=== PATIENT | male | born 1955 | race Caucasian/White ===

== ENCOUNTER → 2017-06-01 | Outpatient (CLI) | payer OTHER ==
--- NOTE | 2017-06-01 16:17 | MR ---
EXAMINATION TYPE: MR shoulder RT wo con DATE OF EXAM: 06/01/2017 2:59 PM COMPARISON: NONE HISTORY: Right shoulder pain x8 years, getting worse with Limited ROM TECHNIQUE: Multiplanar multispin echo imaging of the right shoulder was performed. FINDINGS: Rotator cuff : Thickening and heterogeneity of the supraspinatus tendon with partial undersurface tea r. No evidence for full-thickness tear. The remaining constituents of the rotator cuff are intact. Bursa: No bursal effusion or thickening is seen. Musculature: There is no muscular tear, contusion, or atrophy. Acromioclavicular joint : There are mild degenerative changes of the acromioclavicular joint. There is no anterior or lateral acromial downsloping. Osseous structures : There are no fractures or regions of abnormal bone marrow signal intensity. Long biceps tendon : The biceps tendon is normally situated within the bicipital groove. No complete or partial biceps tendon tear is present. Glenohumeral Joint fluid : There is no glenohumeral joint effusion. Cartilage and Bone : No focal hyaline cartilage defects are noted. No Hill-Sachs, reverse Hill-Sachs, or bony Bankart lesions are seen. Labrum : There are no SLAP or soft tissue Bankart lesions. No paralabral cysts are seen. OTHER FINDINGS : none IMPRESSION: 1. No significant abnormality
== END | disposition home or self-care (01) ==
LOC: RADMRIMAIN 14:17
PROVIDERS: ATTEND Orthopaedic Surgery
DX: M25.511 Pain in right shoulder (principal)

== ENCOUNTER → 2022-05-02 | Outpatient (CLI) | payer OTHER ==
--- NOTE | 2022-05-04 10:26 | MR ---
EXAMINATION TYPE: MR Prostate wo/w con DATE OF EXAM: 05/02/2022 9:57 AM COMPARISON: None. CLINICAL INDICATION:Male, 67 years old with history of C61 PROSTATE CANCER; TECHNIQUE: Multi-planar, multi-sequence imaging of the pelvis is performed prior to and following the uncomplicated administration of bolus intravenous gadolinium. CONTRAST: 8 Gadavist Interpretive Criteria: PI-RADS v2.1 SERUM PSA: No data available. SURGICAL PATHOLOGY: No data available. FINDINGS: Prostatic dimensions: 6.4 x 5.8 x 2.8 cm. Ellipsoid Volume: 73.86 cc CENTRAL GLAND (Central and Transition Zones/CZ+TZ): Low T2 signal with smudgy ill-defined borders involving the right central gland mid gland and apex me asuring 2.7 x 2.4 cm. There is evidence of low ADC and high WI signal in this region. PIRADS 5. PERIPHERAL ZONE (PZ): Right posterior peripheral zone apex and mid gland 2.6 x 1.1 and extends towards the apex and crosses midline. PIRADS 5 SEMINAL VESICLES (SV): Low T2/T1 signal in the seminal vesicles which demonstrates postcontrast enhancement and high DWI and low ADC signal. LYMPH NODES: No enlarged pelvic lymph node. REMAINING PELVIS: Trabeculated bladder wall likely secondary to chronic bladder outlet obstruction. No abnormal free or organized intrapelvic fluid collection. No pathologic bowel dilation or mural thickening. OSSEOUS STRUCTURES: No suspicious osseous abnormality. IMPRESSION: 1. PI-RADS 5 lesion right peripheral gland apex/mid gland which extends towards the apex and crosses midline near the apex. There is enhancing tissue within the seminal vesicles near midline suggestive of involvement of the seminal vesicles. 2. PI-RADS 5 lesion right central mid gland/apex measuring up to 2.7 cm. 3. Substantial BPH, estimated gland volume 73.86 mL. 4. No suspicious osseous lesion. No lymphadenopathy identified and no significant.
== END | disposition home or self-care (01) ==
LOC: RADMRIMAIN 08:53
PROVIDERS: ATTEND Urology
DX: C61 Malignant neoplasm of prostate (principal); N40.0 Benign prostatic hyperplasia without lower urinary tract symptoms
CPT/HCPCS: 72197; A9585

== ENCOUNTER → 2022-05-06 | Outpatient (CLI) | payer OTHER ==
[2022-05-06 15:25] LABS: Appearance,Urine Clear (Clear); Bilirubin,Urine Negative (Negative); Blood,Urine Negative (Negative); Color,Urine Yellow (Yellow); Ketones,Urine Negative (Negative); Nitrite,Urine Negative (Negative); PH, Urine 7.5 (5.0-8.0); Specific Gravity,Urine 1.021 (1.001-1.030); Urobilinogen,Urine 0.2 (0.2,1.0)
[2022-05-06 15:42] LABS: African American GFR (CKD) 102.1 (60.0-200.0); Anion Gap 10.1 mmol/L (10.00-18.00); BUN/Creat Ratio 16.57 Ratio (12.00-20.00); Carbon Dioxide 27.5 mmol/L (20.0-27.5); Non-African American GFR(CKD) 88.1 (60.0-200.0); Potassium 4.6 mmol/L (3.5-5.5)
[2022-05-06 18:12] LABS: Basophils # (A) 0.02 X 10*3/uL (0.00-0.10); Basophils % (A) 0.4 %; Eosinophils # (A) 0.12 X 10*3/uL (0.04-0.35); Eosinophils % (A) 2.2 %; HCT 47.7 % (39.6-50.0); HGB 15.1 g/dL (13.0-17.0); Immature Grans, Automated 0.4 %; Lymphocytes # (A) 1.54 X 10*3/uL (0.90-5.00); Lymphocytes % (A) 27.8 %; MCH 29.2 pg (27.0-32.0); MCHC 31.7 g/dL (32.0-37.0); MCV 92.1 fL (80.0-97.0); Monocytes # (A) 0.53 X 10*3/uL (0.20-1.00); Monocytes % (A) 9.6 %; NRBC Per 100 WBC 0 /100 WBCS (0.0-0.0); Neutrophils % (A) 59.6 %; Platelet Count 131 X 10*3/uL (140-440); RBC 5.18 X 10*6/uL (4.40-5.60); RDW 13.2 % (11.5-14.5); WBC 5.53 X 10*3/uL (4.50-10.00)
== END | disposition home or self-care (01) ==
LOC: LABPAT 09:34
PROVIDERS: ATTEND Urology
DX: Z01.812 Encounter for preprocedural laboratory examination (principal); C61 Malignant neoplasm of prostate; R31.29 Other microscopic hematuria; R09.89 Other specified symptoms and signs involving the circulatory and respiratory systems
CPT/HCPCS: 36415; 80048; 81003; 85025; 87086

== ENCOUNTER → 2022-05-06 | Outpatient (CLI) | payer OTHER ==
--- NOTE | 2022-05-06 09:52 | XR ---
EXAMINATION TYPE: XR chest 2V DATE OF EXAM: 05/06/2022 COMPARISON: NONE TECHNIQUE: PA and lateral views submitted. HISTORY: Presurgical FINDINGS: The lungs are clear and there is no pneumothorax, pleural effusion, or focal pneumonia. Heart size normal. No overt failure. Arthropathy of the shoulders. Hyperinflation suggests COPD. IMPRESSION: 1. No acute process.
== END | disposition home or self-care (01) ==
LOC: RADXRMAIN 09:07
PROVIDERS: ATTEND Urology
DX: C61 Malignant neoplasm of prostate (principal); R31.29 Other microscopic hematuria
CPT/HCPCS: 71046

== ENCOUNTER 2022-05-14 08:47 | Day surgery (SDC) | payer OTHER ==
--- NOTE | 2022-05-11 09:14 | P.HPIHPCON ---
History of Present Illness H&P Date: 05/11/22 Chief Complaint: Prostate cancer This is a 67-year-old male history of Bettina 7 (3+4) prostate cancer. Option of robotic prostatectomy versus radiation therapy was discussed with him in detail. Risk and benefit of each approach was discussed in details. He agreed to proceed with a robotic radical prostatectomy with pelvic lymph node dissection. Discussed risk which includes but not limited to bleeding, infection, urinary incontinence, erectile dysfunction, strictures. Discussed risk of injury to nearby organs which includes but not limited to bladder, ureter, rectum and bowel. Discussed also with him risk of anesthesia. Discussed also potential of persisting cancer and cancer recurrence even with surgery. He understood all the risk and agreed to proceed Consent for Procedure: I have explained the operation/procedure to the patient, including the risks, benefits, side effects, alternative therapies (including not receiving the proposed treatment or service), the likelihood of the patient achieving his/her goals, and potential recuperation problems for the procedure/sedation/analgesia, as well as any blood products, if indicated. I also explained to the patient the risks, benefits and side effects of the alternatives, as well as the risks related to not receiving the proposed procedure, care, treatment, or services. Surgical - Exam - General no distress, no pain - Eyes normal ocular movement, no pale - ENT normal nares, normal mucosa - Respiratory normal expansion, normal respiratory effort - Abdomen Abdomen: non tender - Psychiatric oriented to time, oriented to person, oriented to place Assessment and Plan Assessment: OR for robotic radical prostatectomy with pelvic lymph node dissection
[2022-05-13 09:11] VITALS: BMI 25.2
[~2022-05-14 08:47] MED LIST: HEPARIN SODIUM,PORCINE/PF 5,000 UNIT/0.5 ML SYRINGE SQ PRN
[2022-05-14] MEDS ORDERED: LACTATED RINGERS 1,000 ML IV ONE ×5 (09:49→14:31)
[2022-05-14] MEDS ORDERED: ONDANSETRON 4 MG/2 ML VIAL ONE (10:03)
[2022-05-14] MEDS ORDERED: ONDANSETRON 4 MG/2 ML VIAL IVP ONE (10:07)
[2022-05-14] MEDS ORDERED: DEXAMETHASONE SOD PHOSPHATE 4 MG/ML 1 ML VIAL IVP ONE (10:08)
[2022-05-14] MEDS ORDERED: MIDAZOLAM 2 MG/2 ML VIAL IVP ONE (10:17)
[2022-05-14] MEDS ORDERED: fentaNYL (PF) 50 MCG/1 ML VIAL IVP ONE (10:18)
--- NOTE | 2022-05-14 10:28 | P.ANPRN ---
Procedure Note - Anesthesia - Nerve Block Performed Bilateral Erector Spinae Single Time Out Performed: Yes Date of Procedure: 05/14/22 Procedure Start Time: 10:16 Procedure Stop Time: : Location of Patient: PreOp () Indication: Acute Post-Operative Pain, Requested by Surgeon Specifically requested for management of pain by DrLeilani: Mark Perdomo Sedation Type: Sedate with meaningful contact maintained Preparation: Sterile Prep Position: Prone Needle Types: Pajunk Needle Gauge: 21 Ultrasound used to visualize needle placement: Yes Ultrasound used to observe medication spread: Yes Injectate: 0.5% Ropivacaine (see comment for volume) (15 ml +,15 ml NSS PF + 4 mg Dexamethason per side) Blood Aspirated: No Pain Paresthesia on Injection Noted: No Resistance on Injection: Normal Image Stored and Saved: Yes Events: Uneventful and Well Tolerated
[2022-05-14] MEDS ORDERED: MIDAZOLAM 2 MG/2 ML VIAL ONE (11:03)
[2022-05-14] MEDS ORDERED: ROCURONIUM 10 MG/ML (5 ML VIAL) IV ONE (11:03)
[2022-05-14] MEDS ORDERED: GLYCOPYRROLATE 0.2 MG/ML 2 ML VIAL ONE (11:03)
[2022-05-14] MEDS ORDERED: HYDROmorphone (PF) 1 MG/ML ONE (11:03)
[2022-05-14] MEDS ORDERED: LIDOCAINE 2% INJ 20 MG/ML (2 ML VIAL) ONE (11:03)
[2022-05-14] MEDS ORDERED: fentaNYL (PF) 50 MCG/ML 2 ML AMP ONE (11:03)
[2022-05-14] MEDS ORDERED: DEXAMETHASONE SOD PHOSPHATE 4 MG/ML 1 ML VIAL ONE (11:03)
[2022-05-14] MEDS ORDERED: SODIUM CHLORIDE 0.9% (PF) 10 ML VIAL ONE (11:03)
[2022-05-14] MEDS ORDERED: NEOSTIGMINE 1 MG/ML 10 ML VIAL ONE (11:03)
[2022-05-14] MEDS ORDERED: ROPIVACAINE 5 MG/ML 30 ML VIAL ONE (11:03)
[2022-05-14] MEDS ORDERED: SUCCINYLCHOLINE CHLORIDE 200 MG/10 ML VIAL IV ONE (11:03)
[2022-05-14] MEDS ORDERED: PROPOFOL 10 MG/ML 20 ML VIAL IV ONE (11:03)
[2022-05-14] MEDS ORDERED: BUPIVACAINE (PF) 0.25% 30 ML VIAL SQ ONE ×2 (11:41→15:52)
[2022-05-14] MEDS ORDERED: SODIUM CHLORIDE 0.9% 50 ML with ceFAZolin 2,000 MG IV ONE ×2 (15:01)
--- NOTE | 2022-05-14 15:59 | P.OP ---
Date of Procedure: 05/14/22 Preoperative Diagnosis: Prostate cancer Postoperative Diagnosis: Same Procedure(s) Performed: Robotic-assisted laparoscopic radical prostatectomy, pelvic lymph node dissection Implants: None Anesthesia: ALEXISA Surgeon: Mark Perdomo Estimated Blood Loss (ml): 250 Pathology: other (Prostate, bilateral seminal vesicle, bilateral pelvic lymph nodes) Condition: stable Disposition: PACU Indications for Procedure: This is a 67-year-old male history of Bettina 7 (3+4) prostate cancer. Option of robotic prostatectomy versus radiation therapy was discussed with him in detail. Risk and benefit of each approach was discussed in details. He agreed to proceed with a robotic radical prostatectomy with pelvic lymph node dissection. Discussed risk which includes but not limited to bleeding, infection, urinary incontinence, erectile dysfunction, strictures. Discussed risk of injury to nearby organs which includes but not limited to bladder, ureter, rectum and bowel. Discussed also with him risk of anesthesia. Discussed also potential of persisting cancer and cancer recurrence even with surgery. He understood all the risk and agreed to proceed Operative Findings: After preoperative antibiotics were started, the patient was taken to the operating room. Anesthesia was induced and the patient was placed in a supine position, with adequate padding of the pressure points, shoulders, back, legs and arms. He was then prepped and draped in the standard fashion. A critical pause was performed using two patient identifiers. A 16F white catheter was placed to gravity drainage. A pneumo-peritoneum was created with placement of a Veress needle to 20 mm Hg without complication, and a 8 Fr trocar was placed above the umbillicus. Under direct vision a 8mm robotic ports was placed lateral to each rectus slightly below the camera port. The left iliac fossa 8mm port was placed. The right central supply assistant right iliac fossa 12mm port and right paramedian 5mm portwere placed. After the patient was placed in the trendelenberg position, the robot was then docked to the 8mm robotic ports and then each robotic arm and tower was checked in relation to the patient's legs and hands to avoid inadvertent compression. The peritoneal cavity was inspected. An inverted U-shaped incision began laterally to the left medial umbilical ligament and extended high across the midline to the right umbilical ligament. The limbs of the "U" extended to the level of the vasa on both sides. We next developed the preperitoneal space and the space of Retzius. Cautery was used to dissected the bladder away from the prostate. After the anterior bladder neck was incised and the bladder entered the the posterior bladder neck was exposed and the ureteral orifces identified. The posterior bladder neck was then incised and dissected away from the prostate. The vas and the seminal vesicles were now exposed. I was able to dissect the left seminal vesicle as there was a clear surgical plane. The right seminal vesicle was completely adherent . I was able to excise the seminal vesicle off the denovillers fascia using cautery, I followed the plane on the left, and carried to the right side. of note the right seminal vesicle was quite indurated which was highly concerning for extension into the seminal vesicle. and dissected to their insertions into the prostate and were not spared. The posterior layer of the Denonvillier's fascia was incised to enter anu the plane between prostate and perirectal fat. Each lateral pedicle was controlled with clips and cautery for hemostasis. No nerve sparing was performed. Apically along the right side and along the midline the rectum was adherent to the prostate. There was high concern of extraprostatic extension along that region. The prostate was reflected off of the rectum sharply, and with the use of minimal cautery/ The puboprostatic ligament was incised where it inserted into the apex of the prostate and a plane between urethra and dorsal venous complex developed to expose the anterior urethral surface. The anterior wall of the urethra was transected with the cut setting a few millimeters distal to the apex of the prostate. The dorsal vein was ligated using 3-0 V lock bilateral obturator and external iliac lymph node packets were carefully dissected after careful visualization of the hypogastric artery and obturator nerve. There was careful attention paid to hemostasis with judicious use of cautery.. There was limited lymphatic tissue along the left side, as there was a great deal of induration and edema secondary to the patient's previous inguinal hernia surgery repair. The urethrovesical anastomosis was performed . the posterior denovillers was reapproximated using 3-0 V lock. A 6 and 9 inch 3-0 V-Lock suture was used to anastomose the urethra and bladder, starting at the 6:00 posterior position. Mucosa was secured in every stitch, to ensure a mucosa to mucosa anastomosis. The stitch was regularly cinched and the anastomosis tightened. Care was taken to not violate the ureteral orifices. The White catheter was advanced, the bladder filled, and the anastomosis was tested, as described above. Anastomsis was watertight at 150 mL The periumbilical fascia was closed with 1-0-PDS suture in figure of 8 fashion.. All ports were closed with a subcuticular 4-0 monocryl and Dermabond. Sponge, instrument, and needle counts were correct at the end of the case x2. All specimens including prostate and lymph nodes were sent to pathology for diagnosis and will be available in a week. The patient tolerated the surgery well and without complication. He awoke without difficulty and was taken to the recovery room in stable condition
[2022-05-14] MEDS ORDERED: HYDROmorphone 0.5 MG/0.5 ML SYRINGE IVP ONE (16:15)
[2022-05-14] MEDS ORDERED: KETOROLAC 15 MG/ML 1 ML VIAL IVP ONE (16:45)
[2022-05-14] MEDS: HEPARIN SODIUM,PORCINE/PF 5,000 UNIT/0.5 ML SYRINGE SQ SCH ×2 (18:07→23:21)
[2022-05-14] MEDS: D5-0.45% NACL WITH KCL 20MEQ/L 1,000 ML IV SCH (18:08)
[2022-05-14] MEDS: HYDROcodone/APAP 5-325MG 1 EACH TAB PO PRN (20:15)
[2022-05-14] MEDS: KETOROLAC 15 MG/ML 1 ML VIAL IVP SCH (23:21)
[2022-05-15] MEDS: D5-0.45% NACL WITH KCL 20MEQ/L 1,000 ML IV SCH ×2 (00:55→08:02)
[2022-05-15] MEDS: KETOROLAC 15 MG/ML 1 ML VIAL IVP SCH ×2 (05:10→11:36)
[2022-05-15] MEDS: HEPARIN SODIUM,PORCINE/PF 5,000 UNIT/0.5 ML SYRINGE SQ SCH (08:01)
[2022-05-15 08:05] VITALS: BP 104/59; PULSE 61; RESP 17; TEMP 97.6
--- NOTE | 2022-05-15 08:23 | P.DS ---
Providers Expected date of discharge: 05/15/22 Attending physician: Mark Perdomo MD Primary care physician: [facility] Course: On the day of admission, the patient underwent an uncomplicated robotic-assisted laparoscopic prostatectomy with bilateral pelvic lymphadenectomy. The perioperative course was unremarkable. Patient remained afebrile with stable vital signs. On the first postoperative day, he was reasonably comfortable and tolerating diet. The abdomen was soft and non-distended. Incisions were clean and dry. The Freeman catheter was draining clear yellow urine. The patient was preparing to ambulate. Procedures: Robotic-assisted laparoscopic prostatectomy (RAL P) with bilateral pelvic lymphadenectomy in 05/14/2022. Patient Condition at Discharge: Good Plan - Discharge Summary Discharge Rx Participant: No New Discharge Prescriptions: New Ciprofloxacin HCl [Cipro] 250 mg PO Q12HR #6 tablet Ketorolac [Toradol] 10 mg PO Q6HR PRN #10 tab PRN Reason: Pain No Action Tamsulosin [Flomax] 0.4 mg PO DAILY Discharge Medication List Tamsulosin [Flomax] 0.4 mg PO DAILY 05/13/22 [History] Ciprofloxacin HCl [Cipro] 250 mg PO Q12HR #6 tablet 05/15/22 [Rx] Ketorolac [Toradol] 10 mg PO Q6HR PRN #10 tab 05/15/22 [Rx] Follow up Appointment(s)/Referral(s): Mark Perdomo MD [STAFF PHYSICIAN] - 10 Days Activity/Diet/Wound Care/Special Instructions: Discharge home with Freeman catheter. Instruct patient to use overnight drainage bag as well as urinary leg bag. Okay to shower. Diet as tolerated. No lifting, driving, or strenuous activity. Reassure patient that abdominal wall ecchymosis and penoscrotal swelling are normal. Instruct patient to begin taking antibiotics one day prior to Freeman catheter removal, and to discontinue taking tamsulosin. Discharge Disposition: HOME SELF-CARE
[2022-05-15] MEDS: HYDROcodone/APAP 5-325MG 1 EACH TAB PO PRN (11:34)
== END 2022-05-15 13:23 | disposition home or self-care (01) ==
LOC: OR 08:47 → 4SSUR 16:00 → OR 05-15 13:23
PROVIDERS: ATTEND Urology
DX: C61 Malignant neoplasm of prostate (principal); Z79.899 Other long term (current) drug therapy; Z85.46 Personal history of malignant neoplasm of prostate
CPT/HCPCS: 94760; 64999; 86900; 86901; 86850; 55866; J2250; J1100; J0690 ×2; J2405; J1885 ×2; J1170; J1644 ×2; J3010; 88305; 88307; 88309

== ENCOUNTER → 2023-03-25 | Outpatient (CLI) | payer OTHER ==
--- NOTE | 2023-03-26 13:26 | PE ---
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 Images are reviewed on the computer in t he coronal, axial, and sagittal planes. Reconstructed rotating images are created on independent wor kstation and reviewed on the computer. A non-contrast CT is performed in conjunction with the PET s can. CT DLP: 411.43 mGycm, Automated exposure control for dose reduction was used. COMPARISON: CT None, PET/CT None, MR 05/02/2022. FINDINGS: Mediastinal SUV mean is 0.9. Hepatic parenchyma SUV mean is 4.69. SKULL BASE AND NECK: No suspicious radiotracer activity. CHEST, MEDIASTINUM, AND HILAR REGION: No suspicious radiotracer activity. ABDOMEN AND PELVIS: * Left common iliac lymph node measuring 6 mm in short axis max SUV 10.0. * Presacral lymph node lymph node measuring 6 mm Max SUV 2.8. * Lymph nodes posterior to the sacrum in the presacral spacer measuring up to 9 mm Max SUV 5.5. * Right seminal vesicle uptake max SUV 7.4. * Right pelvic sidewall lymph node measuring 4 mm Max SUV 2.5. MUSCULOSKELETAL STRUCTURES: No suspicious radiotracer activity. OTHER CT: Bilaterally aphakia.2 atherosclerosis of the arterial vasculature. Right simple appearing r enal cysts. Fat-containing umbilical hernia. Clonic diverticulosis. IMPRESSION: Findings suspicious for metastatic prostate adenocarcinoma with left common iliac, presacral/pelvic l ymph nodes as well as right seminal vesicle uptake.
== END | disposition home or self-care (01) ==
LOC: RADPETMAIN 09:30
PROVIDERS: ATTEND Urology
DX: C61 Malignant neoplasm of prostate (principal)
CPT/HCPCS: 78815; A9596

== ENCOUNTER → 2023-06-21 | Outpatient (CLI) | payer OTHER ==
[2023-06-21 15:11] LABS: Blood Urea Nitrogen 15.6 mg/dL (9.0-27.0)
[2023-06-21 15:42] LABS: Prostate Specific Antigen 0.05 ng/mL (0.000-4.500)
== END | disposition home or self-care (01) ==
LOC: LABWHC1 09:28
PROVIDERS: ATTEND Radiology Radiation Oncology
DX: C61 Malignant neoplasm of prostate (principal)
CPT/HCPCS: 36415; 82565; 84153; 84520

== ENCOUNTER → 2023-06-22 | Outpatient (CLI) | payer OTHER ==
--- NOTE | 2023-06-22 12:36 | CT ---
EXAMINATION TYPE: CT abdomen pelvis w con CT DLP: 901 mGycm, Automated exposure control for dose reduction was used. DATE OF EXAM: 06/22/2023 12:14 PM COMPARISON: Pet/CT 05/25/2023, MRI prostate 05/02/2022.a CLINICAL INDICATION:Male, 68 years old with history of C61 prostate ca; prostate ca TECHNIQUE: Axial CT abdomen pelvis w con;Sagittal and coronal reformats were created on a separate w orkstation. Contrast used:100 mL of Isovue 370 with IV Contrast, (none if empty) Oral contrast used: with Oral Contrast (none if empty) FINDINGS: LOWER CHEST: Unremarkable ABDOMEN LIVER: Unremarkable GALLBLADDER AND BILE DUCTS: Unremarkable. PANCREAS: Unremarkable. SPLEEN: Unremarkable. ADRENAL GLANDS: Unremarkable. KIDNEYS AND URETERS: No evidence of hydronephrosis or renal calculus. The ureters are unremarkable. Simple appearing right renal cortical cyst. PELVIS BLADDER: Unremarkable REPRODUCTIVE: The prostate gland is surgically absent. No abnormal lymphadenopathy in the abdomen or pelvis. ABDOMEN & PELVIS STOMACH AND BOWEL: No evidence of bowel obstruction. Scattered colonic diverticula present. PERITONEUM/RETROPERITONEUM: No evidence of pneumoperitoneum or free fluid. VASCULATURE: No evidence of aortic aneurysm. MUSCULOSKELETAL: No acute osseous abnormalities. Moderate disc degeneration changes are present throu ghout the thoracolumbar spine. LYMPH NODES: Stable appearance of the left common iliac lymph node which is increased radiotracer upt amado on prior PET/CT on 03/25/2023 measures 5 mm in for short axis series 3 image 55, as well as other lymph nodes on image 60 measuring 5 mm image 65 measuring 4 mm. Presacral space lymph node which is PET avid remains present measuring 3 mm. IMPRESSION: Similar size of lymph nodes seen on prior PET/CT with increased gallium-68 PSMA radiotracer uptake in volving the presacral, left common iliac and left external iliac chains.. Continued surveillance teresa mmended. No new or enlarging lymph nodes identified.1
== END | disposition home or self-care (01) ==
LOC: RADCTMAIN 10:29
PROVIDERS: ATTEND Radiology Radiation Oncology
DX: C61 Malignant neoplasm of prostate (principal)
CPT/HCPCS: 74177; Q9967

== ENCOUNTER → 2024-01-14 | Outpatient (CLI) | payer MEDICARE, OTHER | END | disposition home or self-care (01) | LOC: LABPRL 12:00 | PROVIDERS: ATTEND Radiology Radiation Oncology | DX: C61 Malignant neoplasm of prostate (principal); C77.5 Secondary and unspecified malignant neoplasm of intrapelvic lymph nodes | CPT/HCPCS: 84153; 84403 ==